=== PATIENT | female | born 1960 | race Caucasian/White ===

== ENCOUNTER 2022-06-08 11:12 | Emergency (ER) | payer BC, OTHER ==
[~2022-06-08] VITALS: Ht 170.1 cm; Wt 62.6 kg
[2022-06-08 13:20] LABS: BASO % 0.2 % (0.0-1.0); EOS # 0.1 10*3/uL (0.0-0.4); HEMATOCRIT 37.2 % (37.0-47.0); LYMPH # 1.3 10*3/uL (1.3-4.4); LYMPH % 20.7 % (27.0-41.0); MEAN CELL VOLUME 86.1 fl (81.0-99.0); MEAN CORPUSCULAR HGB 29.2 pg (27.0-31.0); MEAN CORPUSCULAR HGB CONC 33.9 g/dl (33.0-37.0); MEAN PLATELET VOLUME 11.3 fl (9.6-12.3); MONO # 0.4 10*3/uL (0.1-1.0); MONO % 6.2 % (3.0-9.0); NEUT # 4.3 10*3/uL (2.3-7.9); NEUT % 70.7 % (47.0-73.0); PLATELET COUNT AUTOMATED 78 10*3/uL (130-400); RED BLOOD COUNT 4.32 10*6/uL (4.10-5.10); WHITE BLOOD COUNT 6.1 10*3/uL (4.8-10.8)
[2022-06-08 13:42] LABS: CREATININE 1.24 mg/dL (0.55-1.02); POTASSIUM 3.4 mmol/L (3.5-5.1)
[2022-06-08] MEDS ORDERED: NAPROSYN500 MG PO (17:36)
[2022-06-08] MEDS ORDERED: HYDROCODONE-AC1 EAC1 PO (17:36)
== END 2022-06-08 17:49 | disposition home or self-care (01) ==
LOC: ED 11:12
PROVIDERS: Physician Assistant
DX: M54.2 Cervicalgia (principal); Z88.1 Allergy status to other antibiotic agents